=== PATIENT | male | born 1975 | race African-American/Black ===

== ENCOUNTER 2018-04-23 15:25 | Emergency (ER) | payer MEDICAID ==
[~2018-04-23] VITALS: Ht 180.3 cm; Wt 100.0 kg
[2018-04-23 17:18] LABS: BASOPHILS % 0.6 % (0.0-2.0); EOSINOPHILS % 0.3 % (0.0-5.0); HEMATOCRIT. 47.3 % (42.0-52.0); HEMOGLOBIN. 16.1 g/dL (14.0-18.0); LYMPHOCYTES % 22.7 % (20.0-50.0); MEAN CORPUSCULAR HEMOGLOBIN 31.5 pg (28.0-32.0); MEAN CORPUSCULAR VOLUME 92.5 fL (80.0-94.0); MEAN PLATELET VOLUME 9.5 fl (7.4-10.4); MONOCYTES % 7.3 % (2.0-8.0); NEUTROPHILS % 69.1 % (40.0-76.0); PLATELET 360 x1000/uL (130-400); RED BLOOD CELL COUNT 5.11 mill/uL (4.7-6.1); RED CELL DISTRIBUTION WIDTH 14.4 % (11.6-14.6)
[2018-04-23 17:22] LABS: CHLORIDE 97 mEq/L (98-107)
[2018-04-23 17:30] LABS: ETHANOL BLOOD < 10 mg/dL
[2018-04-23 18:04] LABS: *AMPHETAMINES SCREEN URINE NEGATIVE (NEGATIVE); *BARBITURATES SCREEN URINE NEGATIVE (NEGATIVE); *BENZODIAZEPINES SCREEN URINE NEGATIVE (NEGATIVE)
[2018-04-23 18:05] LABS: *COCAINE SCREEN URINE NEGATIVE (NEGATIVE); CANNABINOID URINE SCREEN PRESUMTIVE POSITIVE (NEGATIVE); METHADONE URINE SCREEN NEGATIVE (NEGATIVE); OPIATES URINE SCREEN NEGATIVE (NEGATIVE); PHENCYCLIDINE URINE SCREEN PRESUMTIVE POSITIVE (NEGATIVE)
[2018-04-23] MEDS ORDERED: IBUPROFEN 600MG TABLET PO ONE (18:45)
[2018-04-23] MEDS ORDERED: LORAZEPAM 2MG/ML CPJ IM ONE (18:45)
[2018-04-23] MEDS ORDERED: LORAZEPAM 1MG TABLET PO ONE (18:45)
[2018-04-23] MEDS ORDERED: SODIUM CHLORIDE 0.9% 1,000 ML IV ONE ×2 (19:05→23:00)
[2018-04-24 09:43] VITALS: BP 133/90
== END 2018-04-24 09:34 | disposition home or self-care (01) ==
LOC: ER 19:57
DX: F16.188 Hallucinogen abuse with other hallucinogen-induced disorder (principal); F12.10 Cannabis abuse, uncomplicated; E87.5 Hyperkalemia
CPT/HCPCS: 36415; 80048; 80305; 85025; 96372; 99284; G0482; J2060; J7030; Z7610